=== PATIENT | female | born 1990 | race Two or more races ===

== ENCOUNTER 2020-02-07 19:57 | Emergency (ER) | payer BC, SELFPAY ==
--- NOTE | 2020-02-07 22:31 | CT_ITS ---
EXAMINATION: CT ABDOMEN AND PELVIS WITHOUT CONTRAST CLINICAL INFORMATION: Bilateral flank pain. COMPARISON: None. TECHNIQUE: Contiguous axial thin section helical images of the abdomen and pelvis were performed without oral or IV contrast. The data set was reformatted in the coronal and sagittal planes and reviewed on an independent workstation. DLP: 685 mGy-cm. FINDINGS: The visualized lung bases are clear. The visualized portions of the heart are unremarkable. The liver is of normal size and attenuation without focal lesions nor intrahepatic biliary ductal dilation. A normal gallbladder is identified. There is no wall thickening or discernible pericholecystic fluid. The spleen, pancreas, adrenal glands are unremarkable. Both kidneys are of normal size and attenuation without hydronephrosis. There is a 3 mm nonobstructive calculus within the lower pole of the right kidney. There is no abdominal free fluid. There is neither mesenteric nor retroperitoneal lymphadenopathy. Normal unopacified loops of small and large bowel are identified. A normal appendix is identified. There is no pelvic free fluid. The urinary bladder is unremarkable. There is neither pelvic nor inguinal lymphadenopathy. Bone windows: Neither sclerotic nor lytic bone lesions are identified. CT/CT abdomen pelvis wo con IMPRESSION: No hydronephrosis. Nonobstructive right renal calculus. No evidence for acute abdominal or pelvic inflammatory processes. Automated exposure control (Care Dose) Adjustment of the mA and/or kv according to patient size (this includes techniques or standardized protocols for targeted exams where dose is matched to indication / reason for exam; i.e. extremities or head).
--- NOTE | 2020-02-07 22:32 | ED_ITS ---
HPI - General Adult General Chief complaint: General Medical Stated complaint: Kidney Stones? Time Seen by Provider: 02/07/20 22:21 Source: patient Mode of arrival: ambulatory Limitations: no limitations History of Present Illness HPI narrative: patient comes to emergency room complaining of bilateral flank pain. Patient states she has had kidney stones in the past and it feels similar. Patient complaining of flank pain since 13:00 this afternoon, pain is constant and radiating towards the groin bilaterally. Patient denies hematuria or dysuria. MD complaint: Flank pain Related Data Allergies Allergy/AdvReac Type Severity Reaction Status Date / Time No Known Allergies Allergy Verified 02/07/20 22:31 Review of Systems Review of Systems: Constitutional : No Weight loss, No Fever, No Chills, No Night Sweats, No Fatigue, No Malaise ENT/Mouth : No Hearing loss, No Ear Pain, No Nasal Congestion, No Sinus Pain, No Hoarseness, No sore throat, No Rhinorrhea, No Swallowing Difficulty Eyes: No Eye Pain, No Swelling, No Redness, No Foreign Body, No Discharge, No Vision Changes Cardiovascular : No Chest Pain, No SOB, No Dyspnea on Exertion, No Orthopnea, No Edema, No Palpitations Respiratory : No Cough, No Sputum, No Wheezing, No Smoke Exposure, No Dyspnea Gastrointestinal : No Nausea, No Vomiting, No Diarrhea, No Constipation, mild bilateral lower inguinal pain radiating from the back, No Hematochezia, No Melena Genitourinary : no irregular bleeding, No Dysuria, No Urinary Frequency, No Hematuria, No Urinary Incontinence, No Urgency, No Flank Pain, No Urinary Flow Changes, No Hesitancy Musculoskeletal : bilateral lower back pain/flank pain Skin : No Skin Lesions, No rash Neuro : No Weakness, No Numbness, No Paresthesias, No Loss of Consciousness, No Dizziness, No Headache Psych : No Anxiety/Panic, No Depression, No SI/HI/AH/VH, No Social Issues, Heme/Lymph: No Bruising, No Bleeding,No Lymphadenopathy Endocrine : No Polyuria, No Polydipsia, No Temperature Intolerance [facility] Past Medical History Medical History (Updated 02/08/20 @ 00:33 by Jessica Whipple MD) Kidney stones Surgical History (Updated 02/07/20 @ 22:43 by Jenny Gotti) H/O eye surgery Social History Social History Alcohol intake: never Smoking Status: Never smoker Use of substances other than those prescribed or required for medical reasons: No Advance Directives: No Advance Directives Information Provided: Yes Physical Exam Vital Signs: Vital Signs: Last Vital Signs Temp 98.6 F 02/08/20 00:24 Pulse 72 02/08/20 00:24 Resp 16 02/08/20 00:24 BP 103/49 L 02/08/20 00:24 Pulse Ox 100 02/08/20 00:15 Body Mass Index 29.5 Appearance: Alert. Oriented X3. No acute distress. Eyes: Pupils equal, round and reactive to light. ENT: Pharynx normal. Neck: Normal inspection. Neck supple. No lymph nodes noted. No crepitus CVS: Normal heart rate and rhythm. Pulses normal. Normal S1 and S2 Respiratory: No respiratory distress. Breath sounds normal. No Wheezing. No rales Abdomen: Soft and nontender. No rigidity. No distention. good BS x4. back: Bilateral lower back pain, no CVA tenderness bilaterally Skin: Skin warm and dry. Normal skin color. Normal skin turgor. Extremities: No lower extremity edema. No lower extremity edema. No Lacerations. No Rash Neuro: Oriented X 3. No motor deficit. No sensory deficit. Moving all extermities. No slurred speech. Course Course Course Narrative: I discussed with the patient that her urine test was negative. Patient has a small stone in the kidney, unlikely to be causing the bilateral flank pain. Patient likely having musculoskeletal pain. Patient requested a blood test and ultrasound, I discussed with the patient that we can accommodate a blood test, but there is no medical indication for an ultrasound at this time. Medical Decision Making Lab Data Result diagrams: 02/07/20 23:15 02/07/20 23:15 Labs: Lab Results 02/07/20 02/07/20 02/07/20 Range/Units 22:54 23:15 23:15 WBC 5.4 (4.8-10.8) X10*3/uL RBC 4.23 (4.20-5.50) X10*6/uL Hgb 12.2 (12.0-16.0) g/dl Hct 37.8 (37-47) % MCV 89.4 (80-98) fL MCH 28.8 (27.0-33.0) pg MCHC 32.3 (31.0-35.0) g/dl RDW 12.5 (11.0-16.0) % Plt Count 232 (160-400) X10*3/uL MPV 10.8 (9.4-12.3) fL Immature Gran % (Auto) 0.2 (0.0-0.4) % Neut % (Auto) 32.8 L (45-73) % Lymph % (Auto) 48.8 H (20-40) % [place] % (Auto) 14.0 H (2-11) % Eos % (Auto) 3.6 (0-4) % Baso % (Auto) 0.6 (0-2) % Lymph # (Auto) 2.6 (1.2-4.9) X10*3/uL [place] # (Auto) 0.8 (0.1-1.2) X10*3/uL Eos # (Auto) 0.2 (0.0-0.4) X10*3/uL Baso # (Auto) 0.0 (0.0-0.2) X10*3/uL Abs Immat Gran (auto) 0.01 (0.00-0.03) X10*3/uL Absolute Neuts (auto) 1.8 L (2.0-8.3) X10*3/uL Absolute Nucleated RBC 0.000 (0.0-0.012) X10*3/uL Nucleated RBC % (auto) 0.0 (0.0-0.2) /100WBC Sodium 138 (135-145) mmol/L Potassium 4.2 (3.3-5.1) mmol/l Chloride 103 (96-108) mmol/L Carbon Dioxide 28 (22-29) mmol/L Anion Gap 11 L (12-20) BUN 14 (9-16) mg/dL Creatinine 1.26 (0.5-1.4) mg/dL Estim Creat Clear Calc 78.3 Estimated GFR 50 Random Glucose 85 (60-115) mg/dL Calcium 9.1 (8.4-10.2) mg/dL Total Bilirubin 0.5 (0.0-1.0) mg/dL Direct Bilirubin 0.2 (0.0-0.5) mg/dL AST 21 (5-31) U/L ALT 15 (0-31) U/L Alkaline Phosphatase 80 (39-117) U/L Total Protein 7.4 (6.5-8.0) g/dL Albumin 4.2 (3.5-5.0) g/dL Urine Color YELLOW Urine Appearance CLEAR Urine pH 7.5 (5.0-8.0) Ur Specific [place] 1.020 (1.005-1.025) Urine Protein NEG (NEG-TRACE) MG/DL Urine Glucose (UA) NEG (NEG) MG/DL Urine Ketones NEG (NEG) MG/DL Urine Blood NEG (NEG) Urine Nitrite NEG (NEG) Ur Leukocyte Esterase NEG (NEG) Urine Test NEGATIVE (NEGATIVE) Discharge Plan Discharge Clinical Impression: Lower back pain Patient Disposition: Home, Self-Care Instructions: Back Pain (ED) Stand Alone Forms: Work/School Release
[2020-02-07 22:37] VITALS: BP 118/70; PULSE 86; RESP 18; TEMP 37.1; O2SAT 98; BMI 29.5
[2020-02-07 23:08] LABS: Appearance Urine CLEAR; Color Urine YELLOW; Glucose Urine UA NEG (NEG); Leukocyte Esterase Urine NEG (NEG); Nitrite Urine NEG (NEG); PH 7.5 (5.0-8.0); Urine Blood NEG (NEG); Urine Ketones NEG (NEG); Urine Protein NEG (NEG-TRACE)
[2020-02-07 23:10] LABS: UPreg QC Valid YES; Urine Pregnancy NEGATIVE (NEGATIVE)
--- NOTE | 2020-02-07 23:15 | PC.NURSE ---
IV established, labs obtained and sent. Pt ambulating to CT with a sutherland/steady gait. Plan to administer Toradol upon return. Continue to monitor.
[2020-02-07 23:25] LABS: Basophils Percent Auto 0.6 % (0-2); Eosinophils Absolute Auto 0.2 X10*3/uL (0.0-0.4); Eosinophils Percent Auto 3.6 % (0-4); Hematocrit 37.8 % (37-47); Hemoglobin 12.2 g/dl (12.0-16.0); Imm Gran Abs Auto 0.01 X10*3/uL (0.00-0.03); Imm Gran Pct Auto 0.2 % (0.0-0.4); Lymphocytes Absolute Auto 2.6 X10*3/uL (1.2-4.9); Lymphocytes Percent Auto 48.8 % (20-40); Mean Corpuscular HGB Conc 32.3 g/dl (31.0-35.0); Mean Corpuscular Hemoglobin 28.8 pg (27.0-33.0); Mean Corpuscular Volume 89.4 fL (80-98); Mean Platelet Volume 10.8 fL (9.4-12.3); Monocytes Absolute Auto 0.8 X10*3/uL (0.1-1.2); Neutrophils Absolute Auto 1.8 X10*3/uL (2.0-8.3); Neutrophils Percent Auto 32.8 % (45-73); Platelet Count 232 X10*3/uL (160-400); Red Blood Count 4.23 X10*6/uL (4.20-5.50); Red Cell Distribution Width 12.5 % (11.0-16.0); White Blood Count 5.4 X10*3/uL (4.8-10.8)
[2020-02-07 23:26] LABS: MANUAL DIFF FLAG NO
[2020-02-07] MEDS: Ketorolac Tromethamine 30 MG/ML VIAL IVPUSH (23:30)
--- NOTE | 2020-02-07 23:31 | PC.NURSE ---
Pt returns from CT, medicated with Toradol per EMAR.
[2020-02-07 23:59] LABS: Alanine Aminotransferase 15 U/L (0-31); Albumin Level 4.2 g/dL (3.5-5.0); Alkaline Phosphatase 80 U/L (39-117); Anion Gap 11 (12-20); Aspartate Amino Transferase 21 U/L (5-31); Bilirubin Direct 0.2 mg/dL (0.0-0.5); Bilirubin Total 0.5 mg/dL (0.0-1.0); Blood Urea Nitrogen 14 mg/dL (9-16); Calcium 9.1 mg/dL (8.4-10.2); Carbon Dioxide 28 mmol/L (22-29); Chloride 103 mmol/L (96-108); Creatinine Clr Calc Pharmacy 78.3; Estimated Glomerular Filt Rate 50; Glucose Random 85 mg/dL (60-115); Potassium 4.2 mmol/l (3.3-5.1); Sodium 138 mmol/L (135-145); Total Protein 7.4 g/dL (6.5-8.0)
[2020-02-08 00:15] VITALS: BP 108/74; PULSE 82; RESP 16; O2SAT 100
[2020-02-08 00:24] VITALS: BP 103/49; PULSE 72; RESP 16; TEMP 37
--- NOTE | 2020-02-08 00:30 | PC.NURSE ---
Pt requesting a blood test and an U/S, stating she has not had her period since 12/26. This RN discussing with MD pts requests, per MD okay to add on HCG. MD at bedside explaining that there is no indication for an U/S at this time. Awaiting blood tests.
[2020-02-08 00:50] LABS: HCG Quantitative < 2 mIU/mL
== END 2020-02-08 01:30 | disposition home or self-care (01) ==
PROVIDERS: Emergency Provider Emergency Medicine; PCP Internal Medicine
DX: M54.5 Low back pain (principal)
CPT/HCPCS: 36415; 74176; 80048; 80076; 81003; 81025; 84702; 85025; 96374; 99284; J1885

== ENCOUNTER 2020-03-24 15:50 | Outpatient (REF) | payer BC, SELFPAY ==
--- NOTE | 2020-03-24 | US_ITS ---
EXAMINATION: ULTRASOUND PELVIS COMPLETE. CLINICAL INFORMATION: Pelvic pain. COMPARISON: None TECHNIQUE: Transabdominal and transvaginal ultrasound pelvis is performed. FINDINGS: The uterus is anteverted and anteflexed measuring 7.5 cm in length, 4.1 cm in AP and 5.1 cm in transverse dimension. Endometrial thickness is 0.3 cm. The uterus is homogeneous in echotexture. The right ovary measures 3.8 x 1.7 x 2.6 cm and volume 8.8 mL. Small follicular cysts are seen. Left ovary measures 3.1 x 2.4 x 2.5 cm and volume 9.5 mL. There are small follicles is seen. There is minimal free fluid in the cul-de-sac. US/US pelvic complete IMPRESSION: Unremarkable uterus and cervix. Small follicular ovarian cyst. No adnexal mass. Minimal small amount of free fluid in the pelvis..
--- NOTE | 2020-03-24 | US_ITS ---
EXAMINATION: ULTRASOUND PELVIS COMPLETE. CLINICAL INFORMATION: Pelvic pain. COMPARISON: None TECHNIQUE: Transabdominal and transvaginal ultrasound pelvis is performed. FINDINGS: The uterus is anteverted and anteflexed measuring 7.5 cm in length, 4.1 cm in AP and 5.1 cm in transverse dimension. Endometrial thickness is 0.3 cm. The uterus is homogeneous in echotexture. The right ovary measures 3.8 x 1.7 x 2.6 cm and volume 8.8 mL. Small follicular cysts are seen. Left ovary measures 3.1 x 2.4 x 2.5 cm and volume 9.5 mL. There are small follicles is seen. There is minimal free fluid in the cul-de-sac. US/US transvaginal IMPRESSION: Unremarkable uterus and cervix. Small follicular ovarian cyst. No adnexal mass. Minimal small amount of free fluid in the pelvis..
== END 2020-03-24 15:51 | disposition home or self-care (01) ==
LOC: HO.US 15:50
PROVIDERS: Visit Provider Advanced Practice Midwife
DX: N92.1 Excessive and frequent menstruation with irregular cycle (principal); R10.2 Pelvic and perineal pain
CPT/HCPCS: 76830; 76856

== ENCOUNTER 2020-04-27 12:01 | Outpatient (REF) | payer BC, SELFPAY | END 2020-04-27 12:02 | disposition home or self-care (01) | LOC: HO.LAB 12:01 | PROVIDERS: Visit Provider Internal Medicine | DX: Z20.822 Contact with and (suspected) exposure to COVID-19 (principal) | CPT/HCPCS: 36415; C9803; U0003 ==

== ENCOUNTER 2020-09-10 20:30 | Emergency (ER) | payer MEDICAID, SELFPAY ==
[2020-09-10 20:37] VITALS: BP 122/81; PULSE 82; RESP 16; TEMP 36.2; O2SAT 98; BMI 30.4
[2020-09-10 22:05] LABS: Basophils Percent Auto 0.4 % (0-2); Eosinophils Absolute Auto 0.2 X10*3/uL (0.0-0.4); Eosinophils Percent Auto 2.3 % (0-4); Hematocrit 38.1 % (37-47); Hemoglobin 12.8 g/dl (12.0-16.0); Imm Gran Abs Auto 0.03 X10*3/uL (0.00-0.03); Imm Gran Pct Auto 0.4 % (0.0-0.4); Lymphocytes Absolute Auto 2.5 X10*3/uL (1.2-4.9); Lymphocytes Percent Auto 29.4 % (20-40); MANUAL DIFF FLAG NO; Mean Corpuscular HGB Conc 33.6 g/dl (31.0-35.0); Mean Corpuscular Hemoglobin 29.5 pg (27.0-33.0); Mean Corpuscular Volume 87.8 fL (80-98); Mean Platelet Volume 10.9 fL (9.4-12.3); Monocytes Percent Auto 11.8 % (2-11); Neutrophils Absolute Auto 4.8 X10*3/uL (2.0-8.3); Neutrophils Percent Auto 55.7 % (45-73); Platelet Count 249 X10*3/uL (160-400); Red Blood Count 4.34 X10*6/uL (4.20-5.50); Red Cell Distribution Width 13.3 % (11.0-16.0); White Blood Count 8.6 X10*3/uL (4.8-10.8)
--- NOTE | 2020-09-10 22:20 | ED_ITS ---
HPI - Chest Pain General Chief Complaint: Chest Pain Stated Complaint: chest pain, 2 wks Time Seen by Provider: 09/10/20 22:19 Source: patient Mode of arrival: ambulatory Limitations: no limitations History of Present Illness HPI narrative: Patient 10 weeks complaining of chest pain get worse when she sits down no nausea no vomiting no shortness of breath no radiation of pain no palpitation patient never had similar pain in the past MD complaint: chest pain Related Data Allergies Allergy/AdvReac Type Severity Reaction Status Date / Time No Known Allergies Allergy Verified 02/07/20 22:31 Review of Systems Review of Systems: Yes all other systems are reviewed and are negative [facility] Past Medical History Medical History Kidney stones Surgical History H/O eye surgery Social History Social History Alcohol intake: never Advance Directives: No Advance Directives Information Provided: No Patient : Yes Physical Exam Vital Signs: Vital Signs: Last Vital Signs Temp 97.2 F 09/10/20 20:37 Pulse 82 09/10/20 20:37 Resp 16 09/10/20 20:37 BP 122/81 09/10/20 20:37 Pulse Ox 98 09/10/20 20:37 Body Mass Index 30.4 Appearance: Alert. Oriented X3. No acute distress. Eyes: PERRLA, No Nystagmus ENT: Pharynx normal. Oral Mucosa moist Neck: Normal inspection. Neck supple. CVS: Normal heart rate and rhythm. Pulses normal. Respiratory: No respiratory distress. Equal air entry bilateral, no wheezing/rales/rhonchi Abdomen: Soft and nontender. Bowel sounds are present, no mass palpable, no CVA tenderness Skin: Skin warm and dry. Normal skin color. Normal skin turgor. Extremities: No lower extremity edema. No calf tenderness Neuro: Oriented X 3. No motor deficit. No sensory deficit. MDM - Chest Pain Lab Data Attestation: I reviewed the patient's lab results. Result diagrams: 09/10/20 21:53 09/10/20 21:53 Labs: Lab Results 06/12/21 06/12/21 06/12/21 Range/Units 21:53 21:53 21:53 WBC 8.6 (4.8-10.8) X10*3/uL RBC 4.34 (4.20-5.50) X10*6/uL Hgb 12.8 (12.0-16.0) g/dl Hct 38.1 (37-47) % MCV 87.8 (80-98) fL MCH 29.5 (27.0-33.0) pg MCHC 33.6 (31.0-35.0) g/dl RDW 13.3 (11.0-16.0) % Plt Count 249 (160-400) X10*3/uL MPV 10.9 (9.4-12.3) fL Immature Gran % (Auto) 0.4 (0.0-0.4) % Neut % (Auto) 55.7 (45-73) % Lymph % (Auto) 29.4 (20-40) % [place] % (Auto) 11.8 H (2-11) % Eos % (Auto) 2.3 (0-4) % Baso % (Auto) 0.4 (0-2) % Lymph # (Auto) 2.5 (1.2-4.9) X10*3/uL [place] # (Auto) 1.0 (0.1-1.2) X10*3/uL Eos # (Auto) 0.2 (0.0-0.4) X10*3/uL Baso # (Auto) 0.0 (0.0-0.2) X10*3/uL Abs Immat Gran (auto) 0.03 (0.00-0.03) X10*3/uL Absolute Neuts (auto) 4.8 (2.0-8.3) X10*3/uL Absolute Nucleated RBC 0.000 (0.0-0.012) X10*3/uL Nucleated RBC % (auto) 0.0 (0.0-0.2) /100WBC Sodium 137 (135-145) mmol/L Potassium 4.3 (3.3-5.1) mmol/L Chloride 103 (96-108) mmol/L Carbon Dioxide 24 (22-29) mmol/L Anion Gap 14 (12-20) BUN 10 (9-16) mg/dL Creatinine 0.92 (0.5-1.4) mg/dL Estim Creat Clear Calc 105.4 Estimated GFR > 60 Random Glucose 81 (60-115) mg/dL Calcium 9.9 D (8.4-10.2) mg/dL Total Bilirubin 0.4 (0.0-1.0) mg/dL AST 20 (5-31) U/L ALT 8 (0-31) U/L Alkaline Phosphatase 72 (39-117) U/L Troponin I High Sens < 3.5 (<3.5-17.0) ng/L Total Protein 8.0 (6.5-8.0) g/dL Albumin 4.5 (3.5-5.0) g/dL ECG Data ECG #1: Attestation: I personally reviewed and interpreted this ECG as follows: Interpretation: Normal sinus rhythm heart rate 82 beats per minute no acute ST T wave changes normal axis normal intervals no acute ischemia Discharge Plan Discharge Clinical Impression: Atypical chest pain Patient Disposition: Home, Self-Care Instructions: Chest Pain (ED) Additional Instructions: Your chest pain is not from the heart is likely musculoskeletal take Tylenol for pain
[2020-09-10 22:43] LABS: Alanine Aminotransferase 8 U/L (0-31); Albumin Level 4.5 g/dL (3.5-5.0); Alkaline Phosphatase 72 U/L (39-117); Anion Gap 14 (12-20); Aspartate Amino Transferase 20 U/L (5-31); Bilirubin Total 0.4 mg/dL (0.0-1.0); Blood Urea Nitrogen 10 mg/dL (9-16); Calcium 9.9 mg/dL (8.4-10.2); Carbon Dioxide 24 mmol/L (22-29); Chloride 103 mmol/L (96-108); Creatinine Clr Calc Pharmacy 105.4; Estimated Glomerular Filt Rate > 60; Glucose Random 81 mg/dL (60-115); Potassium 4.3 mmol/L (3.3-5.1); Sodium 137 mmol/L (135-145); Troponin-I High Sensitivity < 3.5 ng/L (<3.5-17.0)
--- NOTE | 2020-09-12 | ECG_ITS ---
Test Reason : CHEST PAIN Blood Pressure : / mmHG Vent. Rate : 082 BPM Atrial Rate : 082 BPM P-R Int : 142 ms QRS Dur : 076 ms QT Int : 366 ms P-R-T Axes : 054 017 030 degrees QTc Int : 427 ms Normal sinus rhythm with sinus arrhythmia Normal ECG No previous ECGs available Referred By: Maikel Deal Electronically Signed By:CHAVA VASQUEZ
== END 2020-09-11 00:02 | disposition home or self-care (01) ==
PROVIDERS: Emergency Provider Internal Medicine
DX: O26.891 Other specified pregnancy related conditions, first trimester (principal); R07.89 Other chest pain; Z3A.10 10 weeks gestation of pregnancy; Z87.442 Personal history of urinary calculi
CPT/HCPCS: 36415; 80053; 84484; 85025; 93005; 99283

== ENCOUNTER 2021-01-04 09:34 | Emergency (ER) | payer MEDICAID, SELFPAY ==
--- NOTE | ~2021-01-04 | NM_ITS ---
EXAMINATION: PULMONARY PERFUSION STUDY CLINICAL INFORMATION: Chest pain and dyspnea. Patient is 26 weeks . COMPARISON: No previous lung scan are radiographs are available for comparison. TECHNIQUE: The technologist Lasha stated to me that via an immunochemist he explained to the patient that a reduced radio isotope dose would be used because of her and that this would expose her fetus to minimal radiation exposure, and that the patient confirmed that she understood this. Subsequently, following the intravenous injection of 1.0 mCi Tc-99m MAA, an 8-view perfusion study was performed using a gamma scintillation camera. FINDINGS: No segmental perfusion defects are present. There is homogeneous distribution of activity bilaterally. There are no focal anatomic appearing perfusion defects present. NM/NM pul perfusion IMPRESSION: Normal radionuclide lung perfusion scan.
--- NOTE | ~2021-01-04 | US_ITS ---
EXAMINATION: US VENOUS ULTRASOUND WITH DOPPLER LOWER EXTREMITY, BILATERAL CLINICAL INFORMATION: Bilateral leg pain. Elevated D-dimer. Evaluate for a deep vein thrombosis. COMPARISON: None TECHNIQUE: Ultrasound of the deep veins is performed from the hip to the calf with compression sonography and color and pulse Doppler assessment. Spectral analysis with color-flow imaging is performed. FINDINGS: RIGHT: There is normal venous compression and respiratory variation and augmented flow. The visualized common femoral vein, superficial femoral vein, profunda femoral vein, popliteal vein, and the trifurcation region shows no evidence of deep venous thrombosis. There is no significant popliteal fossa cyst. Rouleaux flow throughout the right lower extremity. LEFT: There is normal venous compression and respiratory variation and augmented flow. The visualized common femoral vein, superficial femoral vein, profunda femoral vein, popliteal vein, and the trifurcation region shows no evidence of deep venous thrombosis. There is no significant popliteal fossa cyst. Rouleaux flow throughout the left lower extremity. If the patient's symptoms persist, followup ultrasound in 5 days 7 days might be of value to exclude proximal propagation from a non-visualized calf vein. US/US venous duplex LE BI IMPRESSION: No DVT demonstrated in the right and left lower extremity. Slow flow noted within the right and left lower extremity.
[2021-01-04 10:25] LABS: COVID-19 Test Negative (Negative)
[2021-01-04 10:38] VITALS: BP 112/70; PULSE 86; RESP 18; TEMP 36.2; O2SAT 100; BMI 33.4
[2021-01-04 13:32] LABS: MANUAL DIFF FLAG NO
[2021-01-04 13:34] LABS: Basophils Percent Auto 0.3 % (0-2); Eosinophils Absolute Auto 0.1 X10*3/uL (0.0-0.4); Eosinophils Percent Auto 1.8 % (0-4); Hematocrit 34.9 % (37-47); Hemoglobin 11.6 g/dl (12.0-16.0); Imm Gran Abs Auto 0.07 X10*3/uL (0.00-0.03); Lymphocytes Absolute Auto 1.2 X10*3/uL (1.2-4.9); Lymphocytes Percent Auto 16.5 % (20-40); Mean Corpuscular HGB Conc 33.2 g/dl (31.0-35.0); Mean Corpuscular Hemoglobin 29.5 pg (27.0-33.0); Mean Corpuscular Volume 88.8 fL (80-98); Mean Platelet Volume 11.2 fL (9.4-12.3); Monocytes Absolute Auto 0.7 X10*3/uL (0.1-1.2); Monocytes Percent Auto 9.2 % (2-11); Neutrophils Percent Auto 71.2 % (45-73); Platelet Count 208 X10*3/uL (160-400); Red Blood Count 3.93 X10*6/uL (4.20-5.50); Red Cell Distribution Width 13.3 % (11.0-16.0); White Blood Count 7.1 X10*3/uL (4.8-10.8)
[2021-01-04 13:43] LABS: D Dimer 450 NG/ML
--- NOTE | 2021-01-04 13:43 | ECG_ITS ---
Test Reason : GENERAL MEDICAL Blood Pressure : / mmHG Vent. Rate : 087 BPM Atrial Rate : 087 BPM P-R Int : 144 ms QRS Dur : 068 ms QT Int : 354 ms P-R-T Axes : 049 012 023 degrees QTc Int : 425 ms Normal sinus rhythm Normal ECG When compared with ECG of 10-SEP-2020 20:40, No significant change was found Referred By: Catia Gu Electronically Signed By:MAYDA CHEUNG
--- NOTE | 2021-01-04 13:44 | ED.CHESTPAIN ---
HPI - Chest Pain General Chief Complaint: Dyspnea Stated Complaint: chest pain, diff breathing - Time Seen by Provider: 01/04/21 13:43 Source: patient Mode of arrival: ambulatory Limitations: language barrier History of Present Illness HPI narrative: 30 y/o female who is currently 26 weeks presents to the ER with central chest pain that started at 13:00 yesterday while she was at work. She reports the pain is worse when she is laying down flat or walking. It is at these times when she has shortness of breath associated with the chest pain. She denies fever, chills, cough, abdominal pain. She did vomit several times yesterday. She has no lower extremity pain or swelling. She has no personal or family history of blood clots. She called her OB this morning who instructed her to come to the ER for further evaluation. She has no vaginal bleeding, abdominal pain or contractions. complaint: chest pain Onset (ago): day(s) (1) Timing of current episode: episodic Prior episodes: No Onset: during rest Pain location: substernal Pain radiation: none Severity: moderate Pain scale (0-10): 6 Quality: sharp Relieving factors: nothing Exacerbating factors: exertion and supine Associated symptoms: nausea and vomiting Treatment prior to arrival: none Risk Factors Coronary artery disease risk factors: none Pulmonary embolism risk factors: Related Data On Oral Contraceptives: No Allergies Allergy/AdvReac Type Severity Reaction Status Date / Time No Known Allergies Allergy Verified 02/07/20 22:31 Review of Systems Review of Systems: Constitutional: No Fever, No Chills ENT/Mouth: No sore throat, No Rhinorrhea, No Swallowing Difficulty Cardiovascular: + Chest Pain, + SOB, No Orthopnea, No Edema Respiratory: No Cough, No Sputum, No Wheezing, No dyspnea Gastrointestinal: No Nausea, No Vomiting, No Diarrhea, No abdominal Pain Genitourinary: No Dysuria, No Urinary Frequency, No Hematuria Musculoskeletal: No joint pain, No Myalgias Skin: No Skin Lesions, No rash Neuro: No Weakness, No Numbness, No Dizziness, No Headache Psych: + Anxiety/Panic, + Depression Heme/Lymph: No Bruising, No Lymphadenopathy Endocrine: No Polyuria, No Polydipsia PMFSH Past Medical History Medical History Kidney stones Surgical History H/O eye surgery Social History Social History Alcohol intake: never Advance Directives: No Advance Directives Information Provided: Yes Patient : Yes Physical Exam Vital Signs: Vital Signs: Last Vital Signs Temp 97.0 F 01/04/21 16:30 Pulse 90 01/04/21 16:30 Resp 16 01/04/21 16:30 BP 106/59 L 01/04/21 16:30 Pulse Ox 100 01/04/21 16:30 Body Mass Index 33.4 Appearance: Alert. Oriented X3. No acute distress. Eyes: Pupils equal, round and reactive to light. ENT: Pharynx normal. Neck: Normal inspection. Neck supple. CVS: Normal heart rate and rhythm. Pulses normal. Sternal tenderness throughout, no crepitus. Respiratory: No respiratory distress. Breath sounds normal. Abdomen: gravid uterus palpable above the level of the umbilicus, nontender, no RUQ tenderenss. +BS x4 Skin: Skin warm and dry. Normal skin color. Normal skin turgor. No rashes. Extremities: No lower extremity edema. No calf tenderness. Neuro: Oriented X 3. No motor deficit. No sensory deficit. Course Course Course Narrative: 30-year-old female who is currently 26 weeks presents to the ER with shortness of breath and chest pain that started about 24 hours ago. Pain is worse with exertion and when lying flat. She has taken Tylenol twice with no improvement. She is not having shortness of breath at rest only with exertion. She has had no fever or chills no cough. She is not vaccinated for COVID. Will need to rule out PE. Lab workup is pending her vital signs are reassuring with no tachycardia, no hypoxia no respiratory distress. Her chest pain is reproducible which is reassuring. Of note patient was also seen in the ER in August for atypical chest pain. Reevaluation(s) Reevaluation #1: Lower extremity Dopplers are negative. Troponin is negative. Awaiting nuclear medicine scan. Will sign out to night provider who follow-up and determine disposition. MDM - Chest Pain Medical Records Data Attestation: I reviewed the patient's medical records. Lab Data Attestation: I reviewed the patient's lab results. Result diagrams: 01/04/21 13:24 01/04/21 13:24 Labs: Lab Results 01/04/21 01/04/21 01/04/21 Range/Units 10:04 13:24 13:24 WBC 7.1 (4.8-10.8) X10*3/uL RBC 3.93 L (4.20-5.50) X10*6/uL Hgb 11.6 L (12.0-16.0) g/dl Hct 34.9 L (37-47) % MCV 88.8 (80-98) fL MCH 29.5 (27.0-33.0) pg MCHC 33.2 (31.0-35.0) g/dl RDW 13.3 (11.0-16.0) % Plt Count 208 (160-400) X10*3/uL MPV 11.2 (9.4-12.3) fL Immature Gran % (Auto) 1.0 H (0.0-0.4) % Neut % (Auto) 71.2 (45-73) % Lymph % (Auto) 16.5 L (20-40) % [place] % (Auto) 9.2 (2-11) % Eos % (Auto) 1.8 (0-4) % Baso % (Auto) 0.3 (0-2) % Lymph # (Auto) 1.2 (1.2-4.9) X10*3/uL [place] # (Auto) 0.7 (0.1-1.2) X10*3/uL Eos # (Auto) 0.1 (0.0-0.4) X10*3/uL Baso # (Auto) 0.0 (0.0-0.2) X10*3/uL Abs Immat Gran (auto) 0.07 H (0.00-0.03) X10*3/uL Absolute Neuts (auto) 5.0 (2.0-8.3) X10*3/uL Absolute Nucleated RBC 0.000 (0.0-0.012) X10*3/uL Nucleated RBC % (auto) 0.0 (0.0-0.2) /100WBC D-Dimer 450 NG/ML Sodium (135-145) mmol/L Potassium (3.3-5.1) mmol/L Chloride (96-108) mmol/L Carbon Dioxide (22-29) mmol/L Anion Gap (12-20) BUN (9-16) mg/dL Creatinine (0.5-1.4) mg/dL Estim Creat Clear Calc Estimated GFR Random Glucose (60-115) mg/dL Calcium (8.4-10.2) mg/dL Troponin I High Sens (<3.5-17.0) ng/L COVID-19 (JAIME) Negative (Negative) COVID-19 Clin Com See Note 01/04/21 01/04/21 Range/Units 13:24 13:24 WBC (4.8-10.8) X10*3/uL RBC (4.20-5.50) X10*6/uL Hgb (12.0-16.0) g/dl Hct (37-47) % MCV (80-98) fL MCH (27.0-33.0) pg MCHC (31.0-35.0) g/dl RDW (11.0-16.0) % Plt Count (160-400) X10*3/uL MPV (9.4-12.3) fL Immature Gran % (Auto) (0.0-0.4) % Neut % (Auto) (45-73) % Lymph % (Auto) (20-40) % [place] % (Auto) (2-11) % Eos % (Auto) (0-4) % Baso % (Auto) (0-2) % Lymph # (Auto) (1.2-4.9) X10*3/uL [place] # (Auto) (0.1-1.2) X10*3/uL Eos # (Auto) (0.0-0.4) X10*3/uL Baso # (Auto) (0.0-0.2) X10*3/uL Abs Immat Gran (auto) (0.00-0.03) X10*3/uL Absolute Neuts (auto) (2.0-8.3) X10*3/uL Absolute Nucleated RBC (0.0-0.012) X10*3/uL Nucleated RBC % (auto) (0.0-0.2) /100WBC D-Dimer NG/ML Sodium 138 (135-145) mmol/L Potassium 3.7 (3.3-5.1) mmol/L Chloride 106 (96-108) mmol/L Carbon Dioxide 24 (22-29) mmol/L Anion Gap 12 (12-20) BUN 4 L D (9-16) mg/dL Creatinine 0.78 (0.5-1.4) mg/dL Estim Creat Clear Calc 129.0 Estimated GFR > 60 Random Glucose 119 H (60-115) mg/dL Calcium 8.9 D (8.4-10.2) mg/dL Troponin I High Sens < 3.5 (<3.5-17.0) ng/L COVID-19 (JAIME) (Negative) COVID-19 Clin Com ECG Data ECG #1: Attestation: I personally reviewed and interpreted this ECG as follows: ECG interpretation date: 01/04/21 ECG interpretation time: 15:57 Prior ECG tracings: available for review Interpretation: Normal sinus rhythm, heart rate 87 beats per minute, AL interval normal 144 MS, normal QTC, no ST segment elevations or depressions. Core Measures AMI core measures followed: No Measure exclusions: not indicated Discharge Plan Discharge Clinical Impression: Chest pain
[2021-01-04 13:46] LABS: Anion Gap 12 (12-20); Blood Urea Nitrogen 4 mg/dL (9-16); Calcium 8.9 mg/dL (8.4-10.2); Carbon Dioxide 24 mmol/L (22-29); Chloride 106 mmol/L (96-108); Estimated Glomerular Filt Rate > 60; Glucose Random 119 mg/dL (60-115); Potassium 3.7 mmol/L (3.3-5.1); Sodium 138 mmol/L (135-145)
[2021-01-04] MEDS: Acetaminophen 325 MG TABLET 975 MG PO (14:39)
[2021-01-04 16:30] VITALS: BP 106/59; PULSE 90; RESP 16; TEMP 36.1; O2SAT 100
[2021-01-04 16:42] LABS: Troponin-I High Sensitivity < 3.5 ng/L (<3.5-17.0)
--- NOTE | 2021-01-04 18:09 | PC.NURSE ---
SMALL LAC TO FINGER SUTURED AND CLEANED BY GUZMAN IRENE. DSD APPLIED BY PCT.
== END 2021-01-04 18:39 | disposition home or self-care (01) ==
PROVIDERS: Physician Assistant; Emergency Provider Emergency Medicine
DX: O26.892 Other specified pregnancy related conditions, second trimester (principal); R07.9 Chest pain, unspecified; R06.02 Shortness of breath; O99.891 Other specified diseases and conditions complicating pregnancy; M79.605 Pain in left leg; M79.604 Pain in right leg; Z3A.26 26 weeks gestation of pregnancy; Z20.822 Contact with and (suspected) exposure to COVID-19
CPT/HCPCS: 36415; 78580; 80048; 84484; 85025; 85379; 87635; 93005; 93970; 99284; 99285; A9540

== ENCOUNTER 2021-03-31 10:49 | Emergency (ER) | payer MEDICAID, SELFPAY ==
[2021-03-31 11:26] VITALS: BP 121/63; PULSE 103; RESP 18; TEMP 36.8; O2SAT 99; BMI 36.9
[2021-03-31 11:28] LABS: COVID-19 Test Positive (Negative)
--- NOTE | 2021-03-31 11:36 | ED.URI ---
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 Mode of arrival: ambulatory Limitations: no limitations History of Present Illness HPI Narrative: 39 weeks unvaccinated MD elicited complaint: fever, sore throat and rhinorrhea Onset (ago): day(s) (4) Consistency: constant Severity: mild Description of mucous: clear Able to tolerate fluids by mouth: Yes Exacerbating factors: swallowing Relieving factors: nothing Associated symptoms: fever, myalgias, headache, rhinorrhea and sore throat Treatments prior to arrival: none Related Data Allergies Allergy/AdvReac Type Severity Reaction Status Date / Time No Known Allergies Allergy Verified 03/31/21 11:25 Review of Systems Review of Systems: Constitutional : positive Fever, positive Chills, positive fatigue, positive Malaise ENT/Mouth : positive sore throat, positive runny nose Eyes: No Discharge Cardiovascular : No Chest Pain, No SOB Respiratory : No Cough, No Sputum Gastrointestinal : No Nausea, No Vomiting, No Diarrhea, no abdominal pain Genitourinary : No Dysuria, No Urinary Frequency , no vaginal bleeding Musculoskeletal : positive Myalgia Skin : No rash Neuro : pos Headache PMFSH Past Medical History Medical History Kidney stones Surgical History H/O eye surgery Social History Social History (Updated 03/31/21 @ 12:02 by May Fiore DO) Alcohol intake: never Patient Tobacco Use Status: Never used Tobacco Advance Directives: No Advance Directives Information Provided: Yes Physical Exam Vital Signs: Vital Signs: Last Vital Signs Temp 98.3 F 03/31/21 11:26 Pulse 103 H 03/31/21 11:26 Resp 18 03/31/21 11:26 BP 121/63 03/31/21 11:26 Pulse Ox 99 03/31/21 11:26 BMI result Body Mass Index 36.9 Appearance: Alert. Oriented X3. No acute distress. Eyes: Pupils equal, round and reactive to light. ENT: Pharynx normal. MMM Neck: Normal inspection. Neck supple. CVS: Normal heart rate and rhythm. Pulses normal. Respiratory: No respiratory distress. Breath sounds normal. Abdomen: Soft and nontender. Gravid uterus Skin: Skin warm and dry. Normal skin color. Normal skin turgor. Extremities: No lower extremity edema. No calf ttp Neuro: Oriented X 3. No motor deficit. No sensory deficit. Course Course Course Narrative: given M[facility] referral form MDM - URI/Sore Throat MDM Narrative Medical decision making narrative: 30 yo female 39 weeks no CP/SOB no OB complaints here with sore throat, runny nose unvaccinated - at this time she was tested by her OB 2 days ago but does not have results, O2 normal - clear lungs, no abdominal pain/cramps/leakage of fluids/vaginal bleeding. She has no shortness of breath - stable for outpatient follow up with precautions Lab Data Labs: Lab Results 03/31/21 Range/Units 10:53 COVID-19 (JAIME) Positive A (Negative) COVID-19 Clin Com See Note Discharge Plan Discharge Clinical Impression: COVID-19 Instructions: COVID-19 (Coronavirus Disease 2019) (ED) Additional Instructions: return to ED for any worsening symptoms or concerns controle garrett respiraci?n cualquier dificultad llame al 911 Si tiene dolor abdominal o contracciones / sangrado vaginal busque atenci?n inmediata, debe llamar a garrett obstetra para informarle sobre garrett estado positivo de COVID. Poner en cuarentena y usar brenda m?scara / proteger a los dem?s. Print Language: German
== END 2021-03-31 12:32 | disposition home or self-care (01) ==
PROVIDERS: Emergency Provider Emergency Medicine; PCP Internal Medicine
DX: O98.513 Other viral diseases complicating pregnancy, third trimester (principal); U07.1 COVID-19; Z3A.39 39 weeks gestation of pregnancy
CPT/HCPCS: 36415; 87635; 99282; 99283

== ENCOUNTER 2021-12-18 14:09 | Outpatient (REF) | payer MEDICAID, SELFPAY ==
--- NOTE | 2021-12-18 | PFT_ITS ---
INDICATION: Dyspnea. SPIROMETRY: FEV1 to FVC 86% with an FEV1 of 2.88 L, which is 80% predicted. An FVC of 3.24 L, which is 79% predicted. No significant response to bronchodilators noted. Maximum voluntary ventilation 102% predicted. Total lung capacity 78% predicted with an expiratory reserve volume of 40% predicted. DIFFUSION CAPACITY: DLCO 85% predicted. COMPARISONS: None. INTERPRETATION: There is no obstructive ventilatory defect. No significant response to bronchodilators noted, although there is some evidence of small airway disease, which could be further evaluated. In addition to that, there is a mild restrictive ventilatory defect. This could be secondary to an elevated BMI although interstitial lung conditions cannot be ruled out. Diffusion capacity is within normal limits. If asthma is in the differential, methacholine challenge may be helpful in assessing for hyper-reactive airways, specially with a small airways disease. Otherwise, additional imaging warranted. Clinical correlation warranted. MD VERA Kumar/MODL / [id number]
== END 2021-12-18 14:10 | disposition home or self-care (01) ==
LOC: HO.RESP 14:09
PROVIDERS: PCP Internal Medicine; Visit Provider Internal Medicine
DX: R06.09 Other forms of dyspnea (principal)
CPT/HCPCS: 94060; 94727; 94729

== ENCOUNTER 2022-11-22 09:58 | Outpatient (REF) | payer MEDICAID, SELFPAY ==
[2022-11-22 11:30] LABS: MANUAL DIFF FLAG NO
[2022-11-22 11:45] LABS: Basophils Percent Auto 0.4 % (0-2); Eosinophils Absolute Auto 0.1 X10*3/uL (0.0-0.4); Eosinophils Percent Auto 1.8 % (0-4); Hematocrit 36.3 % (37.0-47.0); Hemoglobin 11.7 g/dl (12.0-16.0); Imm Gran Abs Auto 0.07 X10*3/uL (0.00-0.03); Lymphocytes Absolute Auto 1.5 X10*3/uL (1.2-4.9); Lymphocytes Percent Auto 20.7 % (20-40); Mean Corpuscular HGB Conc 32.2 g/dl (31.0-35.0); Mean Corpuscular Hemoglobin 28.7 pg (27.0-33.0); Mean Platelet Volume 11.9 fL (9.4-12.3); Monocytes Absolute Auto 0.8 X10*3/uL (0.1-1.2); Neutrophils Absolute Auto 4.8 x10*3/uL (2.0-8.3); Neutrophils Percent Auto 65.1 % (45-73); Platelet Count 232 X10*3/uL (160-400); Red Blood Count 4.08 X10*6/uL (4.20-5.50); Red Cell Distribution Width 13.9 % (11.0-16.0); White Blood Count 7.4 X10*3/uL (4.8-10.8)
[2022-11-22 11:54] LABS: Alanine Aminotransferase 5 U/L (0-31); Albumin Level 3.5 g/dL (3.5-5.0); Alkaline Phosphatase 73 U/L (39-117); Anion Gap 9 (12-20); Aspartate Amino Transferase 12 U/L (5-31); Bilirubin Total 0.4 mg/dL (0.0-1.0); Blood Urea Nitrogen 7 mg/dL (9-16); Calcium 9.1 mg/dL (8.4-10.2); Carbon Dioxide 24 mmol/L (22-29); Chloride 107 mmol/L (96-108); Estimated Glomerular Filt Rate > 60; Glucose Random 94 mg/dL (60-115); Potassium 4.1 mmol/L (3.3-5.1); Sodium 136 mmol/L (135-145); Total Protein 6.9 g/dL (6.5-8.0)
== END 2022-11-22 09:59 | disposition home or self-care (01) ==
LOC: HO.HHCL 09:58
PROVIDERS: Visit Provider Family Medicine
DX: O26.892 Other specified pregnancy related conditions, second trimester (principal); R51.9 Headache, unspecified
CPT/HCPCS: 36415; 80053; 85025

== ENCOUNTER 2023-07-25 10:14 | Outpatient (REF) | payer MEDICAID, SELFPAY ==
[2023-07-25 11:28] LABS: MANUAL DIFF FLAG NO
[2023-07-25 11:42] LABS: Basophils Percent Auto 0.7 % (0-2); Eosinophils Absolute Auto 0.1 X10*3/uL (0.0-0.4); Eosinophils Percent Auto 2.6 % (0-4); Hematocrit 43.1 % (37.0-47.0); Hemoglobin 14.1 g/dl (12.0-16.0); Imm Gran Abs Auto 0.02 X10*3/uL (0.00-0.03); Imm Gran Pct Auto 0.5 % (0.0-0.4); Lymphocytes Absolute Auto 1.8 X10*3/uL (1.2-4.9); Lymphocytes Percent Auto 41.3 % (20-40); Mean Corpuscular HGB Conc 32.7 g/dl (31.0-35.0); Mean Corpuscular Hemoglobin 28.3 pg (27.0-33.0); Mean Corpuscular Volume 86.5 fL (80.0-98.0); Mean Platelet Volume 11.5 fL (9.4-12.3); Monocytes Absolute Auto 0.5 X10*3/uL (0.1-1.2); Monocytes Percent Auto 10.8 % (2-11); Neutrophils Absolute Auto 1.9 x10*3/uL (2.0-8.3); Neutrophils Percent Auto 44.1 % (45-73); Platelet Count 340 X10*3/uL (160-400); Red Blood Count 4.98 X10*6/uL (4.20-5.50); Red Cell Distribution Width 13.3 % (11.0-16.0); White Blood Count 4.3 X10*3/uL (4.8-10.8)
[2023-07-25 12:08] LABS: HBS Num1 4.61 mIU/mL (0-7.99); ~Hepatitis B Surface Antibody NONREACTIVE (Nonreactive)
[2023-07-25 12:16] LABS: Ferritin 50 ng/mL (10-122)
[2023-07-28 08:44] LABS: TS Negative Control Passed; TS Panel A 0; TS Panel B 1; TS Positive Control Passed; TSpotTB Negative (Negative)
== END 2023-07-25 10:15 | disposition home or self-care (01) ==
LOC: HO.HHCL 10:14
PROVIDERS: Visit Provider Internal Medicine
DX: Z00.00 Encounter for general adult medical examination without abnormal findings (principal); Z11.1 Encounter for screening for respiratory tuberculosis; D50.0 Iron deficiency anemia secondary to blood loss (chronic)
CPT/HCPCS: 36415; 82728; 85025; 86481; 86706

== ENCOUNTER 2023-09-01 21:34 | Emergency (ER) | payer MEDICAID, SELFPAY ==
[2023-09-01 21:36] VITALS: BP 116/77; BP 138/82; PULSE 107; PULSE 118; RESP 18; TEMP 36.6; O2SAT 96; O2SAT 97; BMI 34.1
[2023-09-02 02:49] VITALS: BP 120/72; PULSE 86; RESP 16; TEMP 36.8; O2SAT 97
[2023-09-02 03:37] VITALS: BP 108/73; PULSE 89; RESP 14; TEMP 36.9; O2SAT 99
[2023-09-02] MEDS: Acetaminophen 325 MG TABLET 650 MG PO (03:45)
[2023-09-02 06:36] VITALS: BP 121/76; PULSE 83; RESP 18; TEMP 36.4; O2SAT 97
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
== END 2023-09-02 09:16 | disposition home or self-care (01) ==
PROVIDERS: Emergency Provider Internal Medicine; PCP Internal Medicine
DX: S01.511A Laceration without foreign body of lip, initial encounter (principal); S00.93XA Contusion of unspecified part of head, initial encounter; Y04.2XXA Assault by strike against or bumped into by another person, initial encounter; Z72.89 Other problems related to lifestyle; Z63.0 Problems in relationship with spouse or partner; Y93.9 Activity, unspecified; Y92.009 Unspecified place in unspecified non-institutional (private) residence as the place of occurrence of the external cause; Y99.9 Unspecified external cause status
CPT/HCPCS: 99283; 99284

== ENCOUNTER 2023-09-02 11:14 | Outpatient (REF) | payer MEDICAID, SELFPAY ==
[2023-09-02 15:06] LABS: CT PCR NOT DETECTED (Not Detect.); NG PCR NOT DETECTED (Not Detect.)
[2023-09-03 05:21] LABS: ~HepC Num1 0.18 S/CO (0.00-0.79); ~Hepatitis C Antibody Nonreactive (Nonreactive)
[2023-09-03 10:07] LABS: Bacterial Vaginosis PCR NEGATIVE (Negative); Candida Group PCR DETECTED (Not Detect); Candida glab krusei PCR NOT DETECTED (Not Detect); Trichomonas vaginalis PCR NOT DETECTED (Not Detect)
[2023-09-04 11:44] LABS: RPR Rapid Plasma Reagin NON-REACTIVE (NON-REACTIVE)
[2023-09-06 16:34] LABS: HIV RNA PCR Qn Copies Not Detected Copies/mL; HIV RNA PCR Qn Log Copies Not Detected Log cps/mL
== END 2023-09-02 11:15 | disposition home or self-care (01) ==
LOC: HO.HHCL 11:14
PROVIDERS: Visit Provider Internal Medicine
DX: Z11.4 Encounter for screening for human immunodeficiency virus [HIV] (principal); Z11.3 Encounter for screening for infections with a predominantly sexual mode of transmission; N89.8 Other specified noninflammatory disorders of vagina; R30.0 Dysuria
CPT/HCPCS: 0352U; 0353U; 36415; 86592; 86803; 87086; 87536; 87900

== ENCOUNTER 2024-01-02 12:10 | Emergency (ER) | payer MEDICAID, SELFPAY ==
[2024-01-02 12:23] VITALS: BP 102/66; PULSE 82; RESP 16; TEMP 36; O2SAT 98; BMI 29.6
--- NOTE | 2024-01-02 12:23 | ED.HA ---
HPI - Headache General Chief Complaint: Headache Stated Complaint: headache-high bp Time Seen by Provider: 01/02/24 19:37 Related Data Previous Rx's ?Medication ?Instructions ?Recorded acetaminophen 500 mg tablet 500 mg PO Q6H PRN pain #30 tabs 09/02/23 (Tylenol Extra Strength) ketorolac 10 mg tablet 10 mg PO Q8H PRN pain #10 tabs 01/02/24 metoclopramide HCl 5 mg tablet 5 mg PO .T.i.d. PRN nausea and 01/02/24 (Reglan) vomiting #10 tabs Allergies Allergy/AdvReac Type Severity Reaction Status Date / Time No Known Allergies Allergy Verified 01/02/24 12:29 [facility] Past Medical History Medical History Kidney stones Surgical History H/O eye surgery Social History Social History Alcohol intake: never Patient Tobacco Use Status: Never used Tobacco Smoked in Last 30 Days: No Use of substances other than those prescribed or required for medical reasons: No Advance Directives: No Advance Directives Information Provided: No Do you have a plan to hurt others: No Plan Patient : No Physical Exam Vital Signs: Vital Signs: Last Vital Signs Temp 98.8 F 01/02/24 21:06 Pulse 74 01/02/24 21:06 Resp 16 01/02/24 21:06 BP 94/53 L 01/02/24 21:06 Pulse Ox 99 01/02/24 21:06 O2 Del Method Room Air 01/02/24 21:06 BMI result Body Mass Index 29.6 Course Course Course Narrative: This is a Rapid Medical Examination (RME) performed by Gustavo Gu PA-C in triage. Full HPI, ROS, assessment and treatment plan per primary provider in the Main ED. 33 yo Taiwanese speaking female with no medical history who is presenting to the ER for evaluation of a severe generalized headache x2 days. Reports baseline BP 90/60, at home today it was 132/72. She reports dizziness but denies N/V/D, chest pain, SOB, cough, URI symptoms. No vision changes, weakness, numbness or tingling. has not taken any medications for the headache. BP 82/50 in triage. MAP 61. reports some dizziness. Plan: lab workup Medications Administered Discontinued Medications Generic Name Dose Route Start Last Admin Trade Name Daniel PRN Reason Stop Dose Admin Diphenhydramine HCl 25 mg 01/02/24 19:58 01/02/24 20:21 Diphenhydramine Hcl 50 Mg/Ml Vial IVPUSH 01/02/24 19:59 25 mg ONCE ONE Administration Sodium Chloride 1,000 mls @ 999 mls/hr 01/02/24 19:58 01/02/24 22:00 Ns IVCONT 01/02/24 20:58 Infused .Q1H1M ONE Infusion Ketorolac Tromethamine 30 mg 01/02/24 19:58 01/02/24 20:21 Ketorolac Tromethamine 30 Mg/Ml Vial IVPUSH 01/02/24 19:59 30 mg ONCE ONE Administration Metoclopramide HCl 10 mg 01/02/24 19:58 01/02/24 20:20 Metoclopramide Hcl 10 Mg/2 Ml Vial IVPUSH 01/02/24 19:59 10 mg ONCE ONE Administration Medical Decision Making Medical Decision Making [facility] Narrative: After the above-mentioned treatment, patient feels much better. Patient ready for discharge Patient's blood pressure 94/53. Patient states that that is her baseline. Differential Diagnosis Differential Diagnoses: The differential diagnosis associated with the presentation includes (Tension headache, migraine headache) Admission/Observation Consideration of admission/observation: Escalation of care including admission/observation considered (Given patient's symptoms, observation was considered) Lab Data [facility] Lab Attestation statement: I reviewed the patient's lab results. 01/02/24 13:26 01/02/24 13:26 Labs: Lab Results 01/02/24 Range/Units 13:26 WBC 3.9 L (4.8-10.8) X10*3/uL RBC 4.60 (4.20-5.50) X10*6/uL Hgb 13.4 (12.0-16.0) g/dl Hct 40.9 (37.0-47.0) % MCV 88.9 (80.0-98.0) fL MCH 29.1 (27.0-33.0) pg MCHC 32.8 (31.0-35.0) g/dl RDW 14.6 (11.0-16.0) % Plt Count 264 (160-400) X10*3/uL MPV 11.0 (9.4-12.3) fL Immature Gran % (Auto) 0.3 (0.0-0.4) % Neut % (Auto) 42.5 L (45-73) % Lymph % (Auto) 43.7 H (20-40) % [place] % (Auto) 9.3 (2-11) % Eos % (Auto) 3.4 (0-4) % Baso % (Auto) 0.8 (0-2) % Lymph # (Auto) 1.7 (1.2-4.9) X10*3/uL [place] # (Auto) 0.4 (0.1-1.2) X10*3/uL Eos # (Auto) 0.1 (0.0-0.4) X10*3/uL Baso # (Auto) 0.0 (0.0-0.2) X10*3/uL Abs Immat Gran (auto) 0.01 (0.00-0.03) X10*3/uL Absolute Neuts (auto) 1.7 L (2.0-8.3) x10*3/uL Absolute Nucleated RBC 0.000 (0.0-0.012) X10*3/uL Nucleated RBC % (auto) 0.0 (0.0-0.2) /100WBC ESR 23 H (0-20) MM/HR Sodium 141 (135-145) mmol/L Potassium 4.0 (3.3-5.1) mmol/L Chloride 107 (96-108) mmol/L Carbon Dioxide 28 (22-29) mmol/L Anion Gap 10 L (12-20) BUN 10 (9-16) mg/dL Creatinine 0.92 (0.5-1.4) mg/dL Estim Creat Clear Calc 100.2 Estimated GFR > 60 Random Glucose 92 (60-115) mg/dL Calcium 10.3 H D (8.4-10.2) mg/dL Magnesium 2.1 (1.6-2.6) mg/dL Total Bilirubin 1.4 H (0.0-1.0) mg/dL Direct Bilirubin 0.4 (0.0-0.5) mg/dL AST 18 (5-31) U/L ALT 12 (0-31) U/L Alkaline Phosphatase 99 (39-117) U/L C-Reactive Protein 0.52 H (< or = 0.50) mg/dL Total Protein 8.7 H (6.5-8.0) g/dL Albumin 4.5 (3.5-5.0) g/dL Urine Color Yellow Urine Appearance Cloudy Urine pH 5.5 (5.0-9.0) Ur Specific [place] 1.015 (1.005-1.025) Urine Protein Negative (Neg-Trace) mg/dL Urine Glucose (UA) Negative (Negative) mg/dL Urine Ketones Negative (Negative) mg/dL Urine Blood Large (3+) H (Negative) Urine Nitrite Negative (Negative) Ur Leukocyte Esterase Small (1+) H (Negative) Urine RBC 11-20 H (0-2) /HPF Urine WBC 6-10 H (0-5) /HPF Ur Squamous Epith Cells 11-20 (0-2) /HPF Urine Bacteria 3+ (None Seen) Hyaline Casts 3-5 (0-2) /LPF Urine Test NEGATIVE (NEGATIVE) Critical Care Time Critical Care Time Critical Care Time: Yes Total Critical Care Time: 45 Attestation: I have personally provided critical care time. Time includes review of lab data, radiology results, discussion with consultants, and monitoring for potential decompensation. Intervention performed as documented. Discharge Plan Discharge Clinical Impression: Migraine Patient Disposition: Home, Self-Care Instructions: Migraine Headache (ED) Additional Instructions: Please follow-up with your primary care physician tomorrow. If you have any worsening or new symptoms, please return to the emergency room or call 911 Prescriptions: New ketorolac 10 mg tablet 10 mg PO Q8H PRN (Reason: pain) Qty: 10 0RF Rx Instructions: maximum total duration of 5 days from all oral, intranasal, or parenteral formulations. Do not use this medication with NSAIDs, only Tylenol if needed metoclopramide HCl [Reglan] 5 mg tablet 5 mg PO .T.i.d. PRN (Reason: nausea and vomiting) Qty: 10 0RF Rx Instructions: Take together with Toradol p.r.n. migraine headache No Action acetaminophen [Tylenol Extra Strength] 500 mg tablet 500 mg PO Q6H PRN (Reason: pain) Qty: 30 0RF Print Language: Taiwanese
[2024-01-02 13:34] LABS: MANUAL DIFF FLAG NO
[2024-01-02 13:38] LABS: Basophils Percent Auto 0.8 % (0-2); Eosinophils Absolute Auto 0.1 X10*3/uL (0.0-0.4); Eosinophils Percent Auto 3.4 % (0-4); Hematocrit 40.9 % (37.0-47.0); Hemoglobin 13.4 g/dl (12.0-16.0); Imm Gran Abs Auto 0.01 X10*3/uL (0.00-0.03); Imm Gran Pct Auto 0.3 % (0.0-0.4); Lymphocytes Absolute Auto 1.7 X10*3/uL (1.2-4.9); Lymphocytes Percent Auto 43.7 % (20-40); Mean Corpuscular HGB Conc 32.8 g/dl (31.0-35.0); Mean Corpuscular Hemoglobin 29.1 pg (27.0-33.0); Mean Corpuscular Volume 88.9 fL (80.0-98.0); Monocytes Absolute Auto 0.4 X10*3/uL (0.1-1.2); Monocytes Percent Auto 9.3 % (2-11); Neutrophils Absolute Auto 1.7 x10*3/uL (2.0-8.3); Neutrophils Percent Auto 42.5 % (45-73); Platelet Count 264 X10*3/uL (160-400); Red Cell Distribution Width 14.6 % (11.0-16.0); White Blood Count 3.9 X10*3/uL (4.8-10.8)
[2024-01-02 13:42] LABS: Appearance Urine Cloudy; Color Urine Yellow; Glucose Urine UA Negative (Negative); Leukocyte Esterase Urine Small (1+) (Negative); Nitrite Urine Negative (Negative); PH 5.5 (5.0-9.0); Specific Gravity - Urine 1.015 (1.005-1.025); UMIC TRIGGER UACC YES; Urine Blood Large (3+) (Negative); Urine Ketones Negative (Negative); Urine Protein Negative (Neg-Trace)
[2024-01-02 13:44] LABS: UPreg QC Valid YES; Urine Pregnancy NEGATIVE (NEGATIVE)
[2024-01-02 13:50] LABS: Alanine Aminotransferase 12 U/L (0-31); Albumin Level 4.5 g/dL (3.5-5.0); Alkaline Phosphatase 99 U/L (39-117); Anion Gap 10 (12-20); Aspartate Amino Transferase 18 U/L (5-31); Bilirubin Direct 0.4 mg/dL (0.0-0.5); Bilirubin Total 1.4 mg/dL (0.0-1.0); Blood Urea Nitrogen 10 mg/dL (9-16); C Reactive Protein 0.52 mg/dL (< or = 0.50); Calcium 10.3 mg/dL (8.4-10.2); Carbon Dioxide 28 mmol/L (22-29); Chloride 107 mmol/L (96-108); Creatinine Clr Calc Pharmacy 100.2; Estimated Glomerular Filt Rate > 60; Glucose Random 92 mg/dL (60-115); Magnesium 2.1 mg/dL (1.6-2.6); Sodium 141 mmol/L (135-145); Total Protein 8.7 g/dL (6.5-8.0)
[2024-01-02 14:05] LABS: Bacteria Urine 3+ (None Seen); UACC Culture Trigger YES
[2024-01-02 14:31] LABS: Erythrocyte Sedimentation Rate 23 MM/HR (0-20)
[2024-01-02] MEDS: Metoclopramide HCl 10 MG/2 ML VIAL IVPUSH (20:20)
[2024-01-02] MEDS: 0.9 % Sodium Chloride 1,000 ML 999 ML IVCONT (20:21)
[2024-01-02] MEDS: Ketorolac Tromethamine 30 MG/ML VIAL IVPUSH (20:21)
[2024-01-02] MEDS: diphenhydrAMINE HCL 50 MG/ML VIAL 25 MG IVPUSH (20:21)
[2024-01-02 21:06] VITALS: BP 94/53; PULSE 74; RESP 16; TEMP 37.1; O2SAT 99
--- NOTE | 2024-01-02 21:08 | PC.NURSE ---
Pt asleep resting eyes closed
[2024-01-02 23:02] VITALS: BP 94/53; PULSE 74; RESP 16; TEMP 37.1; O2SAT 99
== END 2024-01-02 23:03 | disposition home or self-care (01) ==
PROVIDERS: Physician Assistant; Emergency Provider Emergency Medicine
DX: G43.909 Migraine, unspecified, not intractable, without status migrainosus (principal); I10 Essential (primary) hypertension; R11.0 Nausea; Z79.899 Other long term (current) drug therapy
CPT/HCPCS: 36415; 80048; 80076; 81001; 81025; 83735; 85025; 85652; 86140; 87086; 96361; 96374; 96375; 99284; 99285; J1200; J1885; J2765

== ENCOUNTER 2024-07-28 10:43 | Outpatient (REF) | payer MEDICAID, SELFPAY ==
[2024-07-28 11:20] LABS: MANUAL DIFF FLAG NO
[2024-07-28 11:43] LABS: Basophils Percent Auto 0.3 % (0-2); Eosinophils Absolute Auto 0.1 X10*3/uL (0.0-0.4); Eosinophils Percent Auto 2.4 % (0-4); Hematocrit 37.9 % (37.0-47.0); Hemoglobin 12.5 g/dl (12.0-16.0); Imm Gran Abs Auto 0.01 X10*3/uL (0.00-0.03); Imm Gran Pct Auto 0.2 % (0.0-0.4); Lymphocytes Absolute Auto 1.7 X10*3/uL (1.2-4.9); Lymphocytes Percent Auto 30.1 % (20-40); Mean Corpuscular Hemoglobin 29.8 pg (27.0-33.0); Mean Corpuscular Volume 90.2 fL (80.0-98.0); Mean Platelet Volume 11.7 fL (9.4-12.3); Monocytes Absolute Auto 0.5 X10*3/uL (0.1-1.2); Neutrophils Absolute Auto 3.4 x10*3/uL (2.0-8.3); Platelet Count 230 X10*3/uL (160-400); White Blood Count 5.8 X10*3/uL (4.8-10.8)
[2024-07-28 12:16] LABS: Alanine Aminotransferase 13 U/L (0-31); Albumin Level 4.2 g/dL (3.5-5.0); Alkaline Phosphatase 80 U/L (39-117); Anion Gap 8 (12-20); Aspartate Amino Transferase 18 U/L (5-31); Bilirubin Total 0.6 mg/dL (0.0-1.0); Blood Urea Nitrogen 8 mg/dL (9-16); Calcium 9.2 mg/dL (8.4-10.2); Carbon Dioxide 27 mmol/L (22-29); Chloride 107 mmol/L (96-108); Cholesterol 173 mg/dL (<200); Estimated Glomerular Filt Rate > 60; Glucose Random 113 mg/dL (60-115); HDL Cholesterol 50 mg/dL (>40); LDL Cholesterol Calculated 110 mg/dL (<100); Potassium 3.4 mmol/L (3.3-5.1); Sodium 139 mmol/L (135-145); Total Protein 7.3 g/dL (6.5-8.0); Triglycerides 69 mg/dL (<150)
[2024-07-28 14:17] LABS: Reflex LDLD? No
[2024-07-30 22:18] LABS: TS Negative Control Passed; TS Panel A 0; TS Panel B 0; TS Positive Control Passed; TSpotTB Negative (Negative)
== END 2024-07-28 10:44 | disposition home or self-care (01) ==
LOC: HO.HHCL 10:43
PROVIDERS: Visit Provider Internal Medicine
DX: Z00.00 Encounter for general adult medical examination without abnormal findings (principal); F43.21 Adjustment disorder with depressed mood; D50.0 Iron deficiency anemia secondary to blood loss (chronic)
CPT/HCPCS: 36415; 80053; 80061; 85025; 86481